=== PATIENT | male | born 1965 | race Caucasian/White ===

== ENCOUNTER 2021-03-22 05:39 | Day surgery (SDC) | payer MEDICARE, MEDICAID ==
[~2021-03-22] VITALS: Ht 172.7 cm; Wt 113.6 kg
--- NOTE | ~2021-03-22 | OP ---
PATIENT NAME: CHRISTINA HANKS MEDICAL RECORD: [id number] :67 LOCATION:[facility] ADMISSION DATE: SURGEON: FREDIS GARCIA MD DATE OF OPERATION: 03/22/2021 PREOPERATIVE DIAGNOSES: 1. Recurrent left inguinal hernia. 2. Hypertension. 3. Diabetes mellitus. 4. Hypercholesterolemia. 5. Chronic obstructive pulmonary disease. 6. Tobacco dependence syndrome. 7. Gastroesophageal reflux disease. POSTOPERATIVE DIAGNOSES: 1. Recurrent left inguinal hernia. 2. Hypertension. 3. Diabetes mellitus. 4. Hypercholesterolemia. 5. Chronic obstructive pulmonary disease. 6. Tobacco dependence syndrome. 7. Gastroesophageal reflux disease. PROCEDURE: Left inguinal hernia repair with medium PHS mesh. SURGEON: Fredis Garcia MD DESCRIPTION OF PROCEDURE: The patient's left groin was prepped and draped in sterile fashion. The patient had an inguinal scar. This was used to access the patient's inguinal region again. Using a 10-blade, we came through the scar and electrocautery was used to come through the subcutaneous tissue down to the external oblique fascia. I encountered a whole lot of scar tissue from his previous hernia repairs. I was able to eventually dissect out the external ring and began dissection of the external oblique fascia off the external ring and began to open this out laterally. There was mesh present just underneath here and I was eventually able to dissect the external oblique fascia off of the mesh. As we extended medially just past the spermatic cord, there was a large fat-containing hernia sac and a small defect. I was eventually able to dissect these free and pushed the hernia sac and its contents back into the abdominal cavity. I eviscerated the patient's left testicle and could see there were no signs of an indirect hernia defect. A couple of the vein structures were injured during this portion of the dissection and these were tied off with 3-0 silk ties. The preperitoneal space of Retzius was opened up and a medium PHS mesh was inserted through the hernia defect. This was sutured down on 4 sides using interrupted 0 Vicryls. Once this was in place, then we irrigated out the wound bed with normal saline. The external oblique fascia was closed with running 0 Vicryl. The subcutaneous tissues and Claudia's were reapproximated with interrupted 3-0 Vicryl and the skin was closed with running subcutaneous 5-0 Monocryl. A total of 10 mL of 0.25% Marcaine with epinephrine was infused into the surrounding tissues and the wound was dressed appropriately. COMPLICATIONS: None. CONDITION: Stable. OPERATIVE REPORT [id number] CHRISTINA HANKS ANESTHESIA: General endotracheal and local. BLOOD LOSS: 30 mL. TRANSINT:[id number] Voice Confirmation ID: [id number] DOCUMENT ID: [id number] cc: [email or web address] Parada CHRISTIAN MD CC: [id number] DICTATION DATE: 03/22/21908 COLOR ADVISER: 03/22/21 [address] [id number]
[~2021-03-22 05:39] MED LIST: COREG25 MG; INCRUSE ELLI62.5 MCG INH; LIPITOR20 MG PO; LISINOPRIL20 MG PO; MOBIC7.5 MG PO; NORVASC10 MG PO; OMEPRAZOLE40 MG PO; PEPCID AC20 MG; VALIUM5 MG; VENTOLIN HFA [SP8 GM INH
[2021-03-22 06:23] LABS: ANION GAP 10.9 mmol/L (8-16); CALCIUM 8.9 mg/dL (8.5-10.1); CARBON DIOXIDE 30.9 mmol/L (21.0-32.0); CREATININE - SERUM 1.3 mg/dL (0.6-1.3); POTASSIUM - SERUM 4.8 mmol/L (3.5-5.1)
[2021-03-22 06:25] LABS: BASOPHILS 0.3 % (0-2); EOSINOPHILS 1.6 % (0-7); HEMATOCRIT 49.8 % (42.0-54.0); IMMATURE GRANULOCYTES 0.2 % (0-5); LYMPHOCYTE ABS# 2.13 10x3/uL (1.32-3.57); MCH 29.5 pg (26.0-34.0); MCHC 32.1 g/dL (31.0-37.0); MCV 91.7 fL (80.0-100.0); MEAN PLATELET VOLUME 10.6 fL (7.4-10.4); MONOCYTES 9.6 % (2-11); NEUTROPHIL ABS# 6.81 10x3/uL (1.78-5.38); NEUTROPHILS 67.3 % (40-80); PLATELET COUNT 281 10x3/uL (130-400); RBC 5.43 10x6/uL (4.20-6.10); RDW 13.9 % (11.5-14.5); WBC 10.1 10x3/uL (4.8-10.8)
[2021-03-22 06:58] VITALS: BP 110/56; Ht 172.7 cm; Wt 113.6 kg
[2021-03-22] MEDS ORDERED: HYDROCODON-ACE1 EA10 PO (09:02)
--- NOTE | 2021-03-22 17:03 | NUR ---
1015 ARRIVED TO ROOM AND PT ON 6 LITERS NC. O2 SATS 94. NO SOB NOTED, FEMALE AT BEDSIDE. ICE PACK TO LEFT GROIN WITH A SMALL AMT OF BLOOD TO SITE. TOLERATING LIQUIDS.
--- NOTE | 2021-03-22 17:16 | NUR ---
1006 NORCO 10MG GIVEN TO PT IN PACU FOR PAIN. 1030 INSTRUCTIONS GIVEN TO PT. IVF INFUSING WELL. 1200 PT HAS SMALL INCREASE OF DRAINAGE TO SITE NO SWELLING NOTED. PT WEANING OFF O2 PER NC. 1400 BLADDER SCAN PT RECEIVED 257ML ENCOURAGED FLUIDS. PT ON 3RD BAG IF IVF. [address] MONROY CALLED AND ORDERS FOR IN AND OUT CATH. 1500 CATHETERIZED PT AND RECIEVED 550 ML OF RAÚL URINE. TOLERATED WELL. IV REMOVED AND PT D/C HOME
== END 2021-03-22 15:15 | disposition home or self-care (01) ==
LOC: D.OPS 05:39
PROVIDERS: ATTEND Surgery
DX: K40.91 Unilateral inguinal hernia, without obstruction or gangrene, recurrent (principal); I10 Essential (primary) hypertension; E11.9 Type 2 diabetes mellitus without complications; E78.00 Pure hypercholesterolemia, unspecified; J44.9 Chronic obstructive pulmonary disease, unspecified; F17.200 Nicotine dependence, unspecified, uncomplicated; K21.9 Gastro-esophageal reflux disease without esophagitis; J45.909 Unspecified asthma, uncomplicated